=== PATIENT | female | born 1940 | race Caucasian/White ===

== ENCOUNTER 2017-04-24 08:14 | Outpatient (CLI) | payer MEDICARE ==
--- NOTE | 2017-04-24 12:05 | CT ---
CT OF THE BRAIN WITHOUT CONTRAST: Date: 04/24/17 Comparison is made with the prior study dated 12/25/04. FINDINGS: A large area of encephalomalacia is seen in the left temporoparietal region from a prior stroke. Thi s was present on the 2004 study, but the extent of the changes is much greater now than it was befor e. A few areas of patchy hypolucency are seen elsewhere in the brain that are most likely from chron ic microvascular ischemia. Some slight lucency in the medial left cerebellar hemisphere was present in retrospect as well. There are no findings of edema, mass, or bleeding. The calvarium appears intact. The sphenoid sinus and mastoid air cells are clear. Atrophy is present. The ventricles are normal in size for atrophy and age. IMPRESSION: 1. Diffuse chronic ischemic changes. 2. Extensive encephalomalacia, primarily in the left temporoparietal region from a prior stroke. Th e coverage of the changes is greater than what was seen on the 2005 scan. A small acute stroke woul d be missed against this background and could only be seen with a MRI. POS: [facility]
== END 2017-04-24 08:15 | disposition home or self-care (01) ==
LOC: BURCT 08:14
PROVIDERS: ATTEND Family Medicine
DX: I63.50 Cerebral infarction due to unspecified occlusion or stenosis of unspecified cerebral artery (principal); F03.90 Unspecified dementia, unspecified severity, without behavioral disturbance, psychotic disturbance, mood disturbance, and anxiety; G93.89 Other specified disorders of brain
CPT/HCPCS: 70450

== ENCOUNTER 2017-05-05 08:44 | Inpatient (IN) | payer MEDICARE ==
[2017-05-05] MEDS ORDERED: methylPREDNISolone Sod Succ/PF 125 MG/2 ML VIAL ONE (09:08)
[2017-05-05] MEDS ORDERED: Albuterol Sulfate 1.25 MG/3 ML NEB ONE (09:25)
[2017-05-05 09:26] LABS: #Basophils 0.1 thou/uL (0.0-0.2); #Eosinphils 0.1 thou/uL (0.0-0.7); #Lymphocytes 0.8 thou/uL (1.20-3.40); #Monocytes 0.9 thou/uL (0.11-0.59); %Basophils 0.8 % (0.0-1.0); %Eosinophils 0.9 % (0.0-10.0); %Lymphocytes 9.1 % (21.0-51.0); %Monocytes 10.4 % (0.0-10.0); %Neutrophils 78.8 % (42.0-75.0); Hemoglobin 11.6 g/dL (12.0-16.0); Mean Corpuscular Hemoglobin 30.2 pg (27.0-31.0); Mean Corpuscular Volume 86.3 fl (81.0-99.0); Mean Platelet Volume 8.2 fL (7.4-10.4); Platelet Count 193 thou/uL (130-400); RBC Distribution Width 13.8 % (11.5-14.5); Red Blood Cell (RBC) Count 3.84 mill/uL (4.20-5.40); White Blood Cell (WBC) Count 8.9 thou/uL (4.8-10.8)
[2017-05-05 09:44] LABS: Troponin I 0.011 ng/mL (< 0.028)
[2017-05-05 09:45] LABS: ALT (SGPT) 15 U/L (8-55); AST (SGOT) 13 U/L (5-34); Albumin 3.8 g/dL (3.4-4.8); Alkaline Phosphatase 51 U/L (40-150); Anion Gap 17 mmol/L (10-20); BUN (Urea Nitrogen) 36 mg/dL (9.8-20.1); Bilirubin, Total 0.9 mg/dL (0.2-1.2); Calc. Creatinine Clearance 0 mL/min (70-130); Calcium 9.6 mg/dL (7.8-10.44); Carbon Dioxide 31 mmol/L (23-31); Chloride 98 mmol/L (98-107); Estimated GFR-MDRD 45; Glucose 128 mg/dL (83-110); Potassium 4.1 mmol/L (3.5-5.1); Protein, Total 6.8 g/dL (6.0-8.3); Sodium 142 mmol/L (136-145)
[2017-05-05 10:42] LABS: Bilirubin Negative (Negative); Blood, Urine Trace (Negative); Clarity Clear (Clear); Glucose, Urine (Dipstick) Negative (Negative); Leukocyte Negative (Negative); Nitrite Negative (Negative); Protein, Urine (Dipstick) Negative (Neg-Trace); Specific Gravity, Urine 1.015 (1.005-1.030); Urobilinogen 0.2 mg/dL (0.2-1.0); pH, Urine 5.5 (5.0-9.0)
[2017-05-05 10:43] LABS: Bacteria/HPF None Seen HPF (None Seen); RBC/HPF 0-3 HPF (0-3); Squamous Epithelial 0-3 HPF (0-3); WBC/HPF 0-3 HPF (0-3)
[2017-05-05] MEDS ORDERED: Acetaminophen 325 MG TAB PO PRN (12:44)
[2017-05-05] MEDS ORDERED: HYDROcodone/Acetaminophen 5/325 mg Tablet PO PRN (12:44)
[2017-05-05] MEDS ORDERED: Ondansetron ODT 4 MG TAB SL PRN (12:44)
[2017-05-05] MEDS ORDERED: Ondansetron HCl/PF 4 MG/2 ML Vial IVP PRN (12:44)
[2017-05-05] MEDS ORDERED: Albuterol Sulfate 2.5 mg/3 ml Neb NEB PRN (12:49)
[2017-05-05] MEDS ORDERED: Dextrose 5 %-0.45 % NaCl 1,000 ML IV SCH (13:00)
[2017-05-05 13:33] VITALS: BMI 22.3
[2017-05-05] MEDS ORDERED: methylPREDNISolone Sod Succ/PF 125 MG/2 ML VIAL IVP SCH (14:00)
[2017-05-05 16:27] VITALS: BP 132/58; TEMP 98.8
--- NOTE | 2017-05-05 17:07 | RAD ---
PORTABLE CHEST: Date: 05-05-17 An AP portable film at 0912 is compared with a 11-12-16 study. FINDINGS: The heart size is unchanged. Calcification is seen in the aortic arch. There is no vascular congesti on, edema, or pleural effusion. The lungs are clear except for an area of scarring in the mid left l octavia. IMPRESSION: Chronic changes but no acute finding. POS: HOME
[2017-05-05] MEDS ORDERED: Lorazepam 0.5 MG TAB PO PRN (19:20)
[2017-05-05] MEDS ORDERED: risperiDONE 0.5 MG TAB PO PRN (19:27)
[2017-05-05] MEDS ORDERED: Atorvastatin Calcium 40 MG TAB PO SCH (21:00)
[2017-05-05] MEDS ORDERED: Mometasone/Formoterol 60 PUFF AER INH SCH (21:00)
[2017-05-05] MEDS ORDERED: Donepezil HCl 10 MG TAB PO SCH (21:00)
[2017-05-05] MEDS ORDERED: Carvedilol 12.5 MG TAB PO SCH (21:00)
[2017-05-05] MEDS ORDERED: tiZANidine HCl 4 MG TAB PO SCH (21:00)
--- NOTE | 2017-05-06 06:08 | HP ---
CHIEF COMPLAINT: Shortness of breath and pallor. HISTORY OF PRESENT ILLNESS: Ms. Luque is a 76-year-old female patient of Dr. Diaz Schmitz, who presented to the Emergency Department after her grandson was more concerned with her appearance this a.m. Reportedly, per her daughter who I spoke with by phone and is her power of finance and administration manager, she was brought to the ER due to pallor. This was associated with acute worsening of chronic shortness of breath. She has a history of COPD and has been managed chronically by Dr. Dhaliwal. Concurrently, she has had progressive dementia that has been gradual over the last 3 to 6 months, actually starting some medication for this about 3 weeks ago with her primary care physician. Apparently, the patient has had issues with correct medication management at home. Her daughter has been doing a pillbox setup for her, but the patient has had confusion regarding dosing and possible compliance issues as well. Per the patient, she has had a non productive cough. She has not had any fever. Dr. Dhaliwal has her on oxygen at night and as needed with activity based on her symptoms during the day. She is on chronic prednisone therapy. According to her daughterMeghan, Dr. Dhaliwal decreased her prednisone to 10 mg daily in the morning, approximately a month and half ago. Previously, she had been on 20 mg daily. She was told that she would continue on this lifelong due to heavy dosing throughout the years. She was evaluated as recently as 04/08/2017 with her primary care doctor, Dr. Diaz Schmitz and prescribed Levaquin 500 daily, given 10 tablets. She was also given an additional 10 tablets on 04/25/2017, only two of which are missing from the bottle. The patient reports that she is feeling improved since her treatment in the ED. The patient has a history of coronary artery disease and congestive heart failure. However, she denies any chest pain or leg edema. PAST MEDICAL HISTORY: 1. Hypertension. 2. Emphysema, steroid and oxygen dependent. 3. History of CVAs and TIAs without known focal neurologic defects. 4. Spondylosis. 5. Osteoporosis. 6. Systolic heart failure with last available ejection fraction from a transthoracic echocardiogram in 04/2014 that shows a severely depressed left ventricular systolic function with EF 15% -20%, mild regurgitation. She is followed by Dr. Pineda. 7. Coronary artery disease with stent placement. 8. History of pulmonary nodules. 9. Dementia, presumed microvascular. PAST SURGICAL HISTORY: Tubal ligation, cataract surgery, cardiac catheterization with stent placement. The patient also has horizontal scar over the pelvic region of unknown significance. SOCIAL HISTORY: The patient denies alcohol or illicit drug use. She is a former smoker, but says that she quit more than 10 years ago in the . She lives at home. Her grandson intermittently stays with her. Her daughter Meghan Baker states she is medical power of finance and administration manager and makes decisions for the patient. She does not have 24-hour supervision in home. They currently do not have any home health assistance for her. ALLERGIES: CEFTRIAXONE, PENICILLIN, and TRAMADOL. HOME MEDICATIONS: 1. Advair HFA 230/21 two inhalations twice daily. 2. Folic acid 0.6 mg p.o. q. day. 3. Calcium plus D 600/800 one p.o. q. day. 4. Donepezil 5 mg p.o. at bedtime. 5. Lisinopril 2.5 mg p.o. q. day. 6. Coreg 6.25 mg p.o. b.i.d. 7. Furosemide 20 mg p.o. q.a.m. 8. Levaquin 500 mg daily (8 remaining tablets of 10 prescribed on 04/25/2017 left in the bottle). 9. Ecotrin 325 mg p.o. q. day. 10. Ventolin HFA 1 puff inhaled q.4 hours p.r.n. shortness of breath. 11. Tylenol with Codeine #3 one to two p.o. q.6 hours p.r.n. 12. Lipitor 40 mg p.o. at bedtime. 13. Clopidogrel 75 mg p.o. q. day. 14. Spironolactone 25 mg p.o. q. day. 15. Protonix 40 mg p.o. q. day. 16. Prednisone 10 mg p.o. q.a.m. per daughter, Meghan, change with Dr. Dhaliwal 6 weeks ago. 17. Tizanidine 2 mg p.o. at bedtime. REVIEW OF SYSTEMS: The patient is a poor historian, but I did review the 10 systems with her power of finance and administration manager in patient. General: Denies fever. Generalized weakness and fatigue over the last 24 hours. No chills or rigors. HEENT: The patient states she has had a little sinus drainage. Denies sore throat, rhinorrhea, ear pain, or changes in vision. Cardiovascular: Denies chest pain, palpitations, orthopnea, PND, leg edema above her baseline. Respiratory: Positive wheezing. No sputum. Positive cough, nonproductive. No hemoptysis. Positive shortness of breath. Gastrointestinal: Denies constipation, nausea, diarrhea, vomiting, melena or hematochezia. No abdominal pain. : The patient reports good urinary output without dysuria, gross hematuria, or urinary frequency. Hematologic: The patient with frequent bruising due to aspirin and Plavix therapy. She denies any recent falls. Musculoskeletal: The patient states that she is ambulatory in the home. Occasionally using cane assist with walker assist when she has to go out in public. She has chronic neck pain and takes pain medicine as needed. Lymphatic: The patient denies any lymph node swelling. Psychiatric: The patient with recent diagnosis of dementia, recently started on medicine in the last 3 weeks. PHYSICAL EXAMINATION: VITAL SIGNS: Presenting vitals to the ER, blood pressure 127/85, heart rate 117 , 92% on room air, respirations 26, and temperature 98.2. At the bedside temperature 98.8, pulse 98, respirations 20, O2 sat 98% on 2 liters, and blood pressure 132/58. GENERAL: Well-developed, well-nourished female in no acute distress. Alert and oriented to person and place, but not time. A poor historian with regarding facts of her medical history. HEENT: Normocephalic and atraumatic. Pupils are equally round and reactive to light and accommodation. Extraocular muscles intact. Nares are patent without discharge. Tongue protrudes in the midline. NECK: Supple, without lymphadenopathy, thyromegaly, JVD or bruit. HEART: Slightly tachycardic, regular rhythm, distant heart sounds. No obvious murmurs, clicks, rubs, or gallops. LUNGS: Diminished throughout with rare expiratory wheezing, most pronounced left upper and lower lobe. ABDOMEN: Positive bowel sounds in all four quadrants, soft, nontender, nondistended, no masses, guarding, or rebound tenderness. EXTREMITIES: No cyanosis, clubbing or edema. HEMATOLOGIC: The patient with notable bruising on the extensor surfaces of the extremities. NEUROLOGIC: Cranial nerves II-XII grossly intact. No focal deficits. LABORATORY DATA: White blood cell count 8.9, hemoglobin 11.6, hematocrit 33.1, platelets 193 with 78% neutrophils and 9% lymphocytes. Sodium 142, potassium 4.1, chloride 98, BUN 36, creatinine 1.17, glucose 128, calcium 9.6, total bilirubin 0.9. AST 13, ALT 15. CK-MB 1.0. Troponin I 0.011. BNP 20.4. Total protein 6.8, albumin 3.8. Urinalysis is negative with the exception of trace blood, 0-3 RBCs, 0-3 WBCs, and no bacteria. ASSESSMENT AND PLAN: 1. Chronic obstructive pulmonary disease exacerbation. It is possible the patient has had some medication mismanagement. The patient was given Levaquin in the emergency room and we will continue this. She was given Solu-Medrol and neb treatments in the ER and feels better since administered. We will continue this. We will taper her from IV steroids back to p.o. once she is stable. We will give a supportive O2, shooting for O2 sat 90%-94%. We will get a social media director consult to help with her care at home. 2. Hypertension. Blood pressure well controlled. She will be continued on her Coreg and lisinopril. 3. Congestive heart failure. The patient will be continued on her diuretic regimen. She does not currently appear to be fluid overloaded at this time. 4. Dementia. I suspect this is vascular in origin given her history. We will continue her Plavix and aspirin as well as her donepezil at bedtime. 5. Hyperlipidemia. The patient will be continued on her Lipitor. 6. Prophylaxis. The patient will be continued on her PPI. We will place sequential compression devices and continue her on aspirin and Plavix. CODE STATUS: Upon discussion with the patient's stated power of finance and administration manager, Meghan Baker, as well as with the patient, she desires FULL CODE STATUS. [place]
[2017-05-06] MEDS ORDERED: Calcium Carbonate + Vit D 1 TAB PO SCH (08:00)
[2017-05-06] MEDS ORDERED: Spironolactone 25 MG TAB PO SCH (08:00)
[2017-05-06] MEDS ORDERED: Folic Acid 1 MG TAB PO SCH (09:00)
[2017-05-06] MEDS ORDERED: Lisinopril 5 MG TAB PO SCH (09:00)
[2017-05-06] MEDS ORDERED: Furosemide 20 MG TAB PO SCH (09:00)
[2017-05-06] MEDS ORDERED: Clopidogrel Bisulfate 75 MG TAB PO SCH (09:00)
[2017-05-06] MEDS ORDERED: Aspirin 325 mg Enteric Coated Tablet PO SCH (09:00)
== END 2017-05-05 20:06 | disposition home or self-care (01) | DRG 191 ==
LOC: BURERS 08:44 → BURMED 11:50 → BURERS 11:57
PROVIDERS: ADMIT Family Medicine; ATTEND Family Medicine
DX: J44.1 Chronic obstructive pulmonary disease with (acute) exacerbation (principal); I50.20 Unspecified systolic (congestive) heart failure; F03.90 Unspecified dementia, unspecified severity, without behavioral disturbance, psychotic disturbance, mood disturbance, and anxiety; I11.0 Hypertensive heart disease with heart failure; Z79.52 Long term (current) use of systemic steroids; I25.10 Atherosclerotic heart disease of native coronary artery without angina pectoris; Z99.81 Dependence on supplemental oxygen; M81.0 Age-related osteoporosis without current pathological fracture; Z87.891 Personal history of nicotine dependence; Z86.73 Personal history of transient ischemic attack (TIA), and cerebral infarction without residual deficits; J43.9 Emphysema, unspecified
CPT/HCPCS: 36415; 71010; 80053; 81003; 81015; 82553; 83880; 84484; 85025; 93005; 94640; 94644; 94760; 96365; 96375; A4216; J1956; J2930; J7620